=== PATIENT | female | born 1975 | race Caucasian/White ===

== ENCOUNTER → 2021-05-17 | Outpatient (CLI) | payer BC, OTHER ==
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
== END ==
LOC: RAD 10:27
PROVIDERS: ATTEND Family Medicine
DX: M25.561 Pain in right knee (principal)
CPT/HCPCS: 73562